=== PATIENT | male | born 1970 | race Caucasian/White ===

== ENCOUNTER → 2017-07-02 | Outpatient (CLI) | payer OTHER | LOC: FIMAGING 07:26 | PROVIDERS: ATTEND Family Medicine Sports Medicine | DX: R16.1 Splenomegaly, not elsewhere classified (principal) ==

== ENCOUNTER → 2018-09-05 | Outpatient (CLI) | payer OTHER | LOC: FIMAGING 08:44 | PROVIDERS: ATTEND Family Medicine Sports Medicine | DX: M25.811 Other specified joint disorders, right shoulder (principal) ==